=== PATIENT | male | born 1985 | race Caucasian/White ===

== ENCOUNTER 2017-01-16 08:45 | Emergency (ER) | payer MEDICAID ==
[~2017-01-16] VITALS: Ht 185.4 cm; Wt 102.1 kg
--- NOTE | 2017-01-16 09:14 | Emergency Room Report ---
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 N Clinical Suspician of Infection? N Mental Status: 1 - Regular (Normal Baseline) Sepsis Risk:Low Sepsis Risk Have you (or family members/close friends) recently traveled outside the [place]? N If Yes, where/when: Have you had exposure to infectious disease within the past month? N TB? Other? Specify: Patient reports diffuse headache yesterday with fever, took Ibuprofen, and headache gone. No neck stiffness or rash. Has had headaches previously, which feel sharp and are in the neck and shoulder region. He denies vomiting. No fever today. No congestion, sore throat, earache, or sinus pain; no cough or urinary sx; no syncope or diplopia; no neurological sx today whatsoever; headache has completely abated. Appetite good. ALLERGIES Coded Allergies: No Known Allergies (01/16/17) Home Medications Reported Medications No Known Home Medications History Medical History General Angina: No [place]: No Hypertension? No Hyperlipidemia? No COPD? No Asthma? No CVA? No Seizures? No Diabetes? No GB Disease: No MRSA? No TB? No Cancer? No Immunization Hx DT/Tetanus NOT SURE Surgical Hx Previous Surgery?N Social History Smoking Hx Smoker: Never Smoker Tobacco: No Alcohol Alcohol: No Review of Systems All Other Systems Reviewed and Negative Physical Exam Vital Signs Vital Signs Date Time Temp Pulse Resp B/P Pulse O2 O2 Flow FiO2 Ox Delivery Rate 01/16 0849 97.7 76 18 123/74 95 General Appearance normal appearance, WD/WN, no apparent distress Eye Exam - bilateral eye normal exam, bilateral eye PERRL, bilateral eye EOMI Ear, Nose, Throat hearing grossly normal, normal ENT inspection, normal pharynx, nasal congestion, pharyngeal erythema Neck normal inspection, non-tender, supple, full range of motion Respiratory Status Yes: trachea midline, chest symmetrical, non tender chest. No: respiratory distress, tender on palpation, use of accessory muscles, pain on inspiration, pain on expiration, productive cough, non productive cough. Lung Sounds bilateral: normal breath sounds, lungs clear. 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 No tremor. Neg Kernig's/Brudzinski' s Glascow Coma Scale Glascow Coma Scale Response Value EYE response: 4 Spontaneously 4 MOTOR response: 6 OBEYS 6 VERBAL response: 5 Oriented & Converses 5 Total 15 Reflexes DTR 3+ knee (R), 3+ knee (L) Skin intact, normal color, warm/dry (no petechiae) Lymphatic no adenopathy Medical Decision Making LABS/Meds/Orders Pt receiving controlled substance in ED? No Results/Orders Laboratory Tests 01/16/17 0900: Influenza Type A Ag NOT DETECTED, Influenza Type B Ag NOT DETECTED Orders Procedure Date/time Status CULTURE, THROAT 01/16 0900 Active STREP SCREEN THROAT 01/16 0858 Complete INFLUENZA A&B ANTIGENS 01/16 08 Complete Departure Departure Time of Disposition 0930 Disposition DC Home or Self Care(routine) Clinical Impression Primary Impression: Headache Qualifiers: Headache type: unspecified Headache chronicity pattern: episodic headache Intractability: not intractable Qualified Code: R51 - Headache Ruled Out Impressions: Flu Condition STABLE Prescriptions Current Visit Scripts No Known Home Medications ED Critical Care Critical Care No at 0933
--- NOTE | 2017-01-16 09:14 | Emergency Room Report ---
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 N Clinical Suspician of Infection? N Mental Status: 1 - Regular (Normal Baseline) Sepsis Risk:Low Sepsis Risk Have you (or family members/close friends) recently traveled outside the [place]? N If Yes, where/when: Have you had exposure to infectious disease within the past month? N TB? Other? Specify: Patient reports diffuse headache yesterday with fever, took Ibuprofen, and headache gone. No neck stiffness or rash. Has had headaches previously, which feel sharp and are in the neck and shoulder region. He denies vomiting. No fever today. No congestion, sore throat, earache, or sinus pain; no cough or urinary sx; no syncope or diplopia; no neurological sx today whatsoever; headache has completely abated. Appetite good. ALLERGIES Coded Allergies: No Known Allergies (01/16/17) Home Medications Reported Medications No Known Home Medications History Medical History General Angina: No [place]: No Hypertension? No Hyperlipidemia? No COPD? No Asthma? No CVA? No Seizures? No Diabetes? No GB Disease: No MRSA? No TB? No Cancer? No Immunization Hx DT/Tetanus NOT SURE Surgical Hx Previous Surgery?N Social History Smoking Hx Smoker: Never Smoker Tobacco: No Alcohol Alcohol: No Review of Systems All Other Systems Reviewed and Negative Physical Exam Vital Signs Vital Signs Date Time Temp Pulse Resp B/P Pulse O2 O2 Flow FiO2 Ox Delivery Rate 01/16 0849 97.7 76 18 123/74 95 General Appearance normal appearance, WD/WN, no apparent distress Eye Exam - bilateral eye normal exam, bilateral eye PERRL, bilateral eye EOMI Ear, Nose, Throat hearing grossly normal, normal ENT inspection, normal pharynx, nasal congestion, pharyngeal erythema Neck normal inspection, non-tender, supple, full range of motion Respiratory Status Yes: trachea midline, chest symmetrical, non tender chest. No: respiratory distress, tender on palpation, use of accessory muscles, pain on inspiration, pain on expiration, productive cough, non productive cough. Lung Sounds bilateral: normal breath sounds, lungs clear. 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 No tremor. Neg Kernig's/Brudzinski' s Glascow Coma Scale Glascow Coma Scale Response Value EYE response: 4 Spontaneously 4 MOTOR response: 6 OBEYS 6 VERBAL response: 5 Oriented & Converses 5 Total 15 Reflexes DTR 3+ knee (R), 3+ knee (L) Skin intact, normal color, warm/dry (no petechiae) Lymphatic no adenopathy Medical Decision Making LABS/Meds/Orders Pt receiving controlled substance in ED? No Results/Orders Laboratory Tests 01/16/17 0900: Influenza Type A Ag NOT DETECTED, Influenza Type B Ag NOT DETECTED Orders Procedure Date/time Status CULTURE, THROAT 01/16 0900 Active STREP SCREEN THROAT 01/16 0858 Complete INFLUENZA A&B ANTIGENS 01/16 08 Complete Departure Departure Time of Disposition 0930 Disposition DC Home or Self Care(routine) Clinical Impression Primary Impression: Headache Qualifiers: Headache type: unspecified Headache chronicity pattern: episodic headache Intractability: not intractable Qualified Code: R51 - Headache Ruled Out Impressions: Flu Condition STABLE Prescriptions Current Visit Scripts No Known Home Medications ED Critical Care Critical Care No at 0933
[2017-01-16 09:22] LABS: STREP SCREEN (RAPID) NEGATIVE
[2017-01-16 09:43] VITALS: BP 120/77
== END 2017-01-16 09:47 | disposition home or self-care (01) ==
LOC: ER 08:45
PROVIDERS: Emergency Medicine
DX: R51 Headache (principal)